=== PATIENT | male | born 1985 | race Caucasian/White ===

== ENCOUNTER 2018-08-07 07:23 | Inpatient (IN) | payer OTHER ==
[~2018-08-07] VITALS: Ht 180.3 cm; Wt 140.6 kg
--- NOTE | 2018-08-07 07:36 | NUR ---
aaox3, BIBA RA 37 From Home Alcohol Abuse "I had a re-lapse been drinking the last 6days. Stopped yesterday for 12H dont feel good". Skin is warm and dry. Placed on the monitor. Sinus Tach 120s in the monitor. elevate HOB. Dr Stover at for eval.
[2018-08-07] MEDS ORDERED: PANTOPRAZOLE 40 MG VIAL ONE (07:41)
[2018-08-07] MEDS ORDERED: ONDANSETRON HCL/PF 4 MG/2 ML VIAL ONE (07:41)
--- NOTE | 2018-08-07 07:48 | NUR ---
Xray in progress at BS.
[2018-08-07 07:54] LABS: BASOPHILS # (AUTO) 0.1 /CMM (0.0-0.2); BASOPHILS % (AUTO) 1.5 % (0.0-2.0); EOSINOPHILS % (AUTO) 0.1 % (0.0-6.0); HEMATOCRIT 49 % (39-51); HEMOGLOBIN 16.9 g/dL (13.5-17.5); LYMPHOCYTES # (AUTO) 1.5 /CMM (0.8-4.8); LYMPHOCYTES % (AUTO) 35.6 % (20.0-44.0); MEAN CORPUSCULAR HGB CONC 34 g/dl (31.0-36.0); MEAN CORPUSCULAR VOLUME 92 fL (80-96); MONOCYTES # (AUTO) 0.4 /CMM (0.1-1.30); MONOCYTES % (AUTO) 9.9 % (2.0-12.0); NEUTROPHILS # (AUTO) 2.3 /CMM (1.8-8.9); NEUTROPHILS % (AUTO) 52.9 % (43.0-81.0); PLATELET COUNT (AUTO) 218 /CMM (150-450); RED BLOOD CELL COUNT(AUTO) 5.35 MIL/uL (4.5-6.0); WHITE BLOOD COUNT (AUTO) 4.3 K/uL (4.3-11.0)
[2018-08-07] MEDS ORDERED: IV NS 0.9% 1,000 ML BAG IV ONE ×2 (08:00→11:30)
[2018-08-07] MEDS ORDERED: ONDANSETRON HCL/PF 4 MG/2 ML VIAL IVP ONE (08:00)
[2018-08-07] MEDS ORDERED: PANTOPRAZOLE 40 MG VIAL IV ONE (08:00)
[2018-08-07 08:04] LABS: CALCIUM, SERUM 8.6 mg/dL (8.5-10.1); CREATININE 1.3 mg/dL (0.6-1.3); POTASSIUM 4.1 mmol/L (3.5-5.1)
[2018-08-07 08:12] LABS: ALBUMIN 4.7 g/dL (3.4-5.0); BILIRUBIN,TOTAL 1.8 mg/dL (0.2-1.0); TOTAL PROTEIN, SERUM 8.6 g/dL (6.4-8.2)
[2018-08-07] MEDS ORDERED: KETOROLAC TROMETHAMINE INJ 30 MG/ML VIAL ONE (09:09)
[2018-08-07] MEDS ORDERED: METOCLOPRAMIDE HCL 10 MG/2 ML VIAL ONE (09:09)
--- NOTE | 2018-08-07 09:14 | NUR ---
ONGOING ULTRASOUND AT BEDSIDE
[2018-08-07] MEDS ORDERED: KETOROLAC TROMETHAMINE INJ 30 MG/ML VIAL IV ONE (09:30)
[2018-08-07] MEDS ORDERED: METOCLOPRAMIDE HCL 10 MG/2 ML VIAL IV ONE (09:30)
[2018-08-07] MEDS ORDERED: IV NS 0.9% 250 ML IV ONE (10:19)
[2018-08-07] MEDS ORDERED: CT SWABBABLE VALVE TRANS SET 1 EA INFUS.SET MC ONE (10:19)
[2018-08-07] MEDS ORDERED: IOHEXOL-300 100 ML VIAL IV ONE (10:19)
[2018-08-07] MEDS ORDERED: LIDOCAINE VISCOUS 2% UD 15 ML UDC ONE (11:17)
[2018-08-07] MEDS ORDERED: MAG HYDROX/AL HYDROX/SIMETH 30 ML UDC ONE (11:17)
[2018-08-07] MEDS ORDERED: LIDOCAINE VISCOUS 2% UD 15 ML UDC MM ONE (11:30)
[2018-08-07] MEDS ORDERED: MAG HYDROX/AL HYDROX/SIMETH 30 ML UDC PO ONE (11:30)
--- NOTE | 2018-08-07 13:10 | NUR ---
DR PRIES AT FOR RE-EVAL.
--- NOTE | 2018-08-07 13:10 | NUR ---
Dorcas mckeon in [facility] - 08/07/18 at [address] PIRES AT FOR FLOYD.
[2018-08-07] MEDS ORDERED: PROP20TA19 PO (13:27)
[2018-08-07] MEDS ORDERED: Z GUARD REMEDY 2 OZ OINT TP PRN (14:30)
[2018-08-07] MEDS ORDERED: ACETAMINOPHEN 325 MG TABLET PO PRN (14:30)
[2018-08-07] MEDS ORDERED: MAG HYDROX/AL HYDROX/SIMETH 30 ML UDC PO PRN (14:30)
[2018-08-07] MEDS ORDERED: MAGNESIUM HYDROXIDE 30 ML UDC PO PRN (14:30)
--- NOTE | 2018-08-07 15:06 | NUR ---
RECEIVED REPORT FROM ED
--- NOTE | 2018-08-07 15:06 | NUR ---
REPORT GIVEN TO REBECCA DANIELSON FOR [facility] MS 101
--- NOTE | 2018-08-07 15:15 | NUR ---
RN MS NOTES PATIENT ARRIVED ON UNIT VIA W/C
[2018-08-07 16:00] VITALS: BP 129/91
--- NOTE | 2018-08-07 16:00 | NUR ---
RN ADMITTING NOTES RECEIVED PATIENT VIA W/C. ABLE TO AMBULATE WITH STANDBY ASSIST. NO SIGNS OR SYMPTOMS OF RESPIRATORY DISTRESS SATURATING 95% ON ROOM AIR. NO C/O ACUTE PAIN 0/10. ABDOMINAL DISCOMFORT NOTED. WELL NOURISHED MALE A/O X3 WITH ETOH LEVEL OF 391. STATES HE WAS SOBER FOR 7 MONTHS THEN WENT ON DRINKING BINGE FOR THE LAST 8 DAYS. STARTED FEELING SICK WITH VOMITING 08/06 CAME INTO ED. IVF NS @ 125 #20 GAUGE IN RAC PATENT. ASKING FOR ICE CHIPS AND JUICE TOLERATED WELL REGULAR DIET ORDERED. ATIVAN WITH ZOFRAN GIVEN @ 2293 PATIENT STATES HE FEELS LIKE HES STARTING TO WITHDRAW ORIENTED TO ROOM AND CONTROL. LIGHTS TURNED DOWN ROOM KEPT COOL AND QUIET. SAFETY AND SEIZURE PRECAUTIONS IN PLACE BED IN LOW POSITION CALL LIGHT WITHIN REACH. WILL CONT TO MONITOR FOR WITHDRAW.
[2018-08-07] MEDS: IV NS 0.9% 1,000 ML IV PRN (16:44)
[2018-08-07] MEDS: ONDANSETRON HCL/PF 4 MG/2 ML VIAL IVP PRN (16:49)
[2018-08-07] MEDS: LORAZEPAM INJ 2 MG/ML VIAL IV PRN (16:49)
--- NOTE | 2018-08-07 19:32 | NUR ---
RN CLOSING NOTES REPORT GIVEN TO MODESTO
[2018-08-07 20:00] VITALS: BP 110/71
--- NOTE | 2018-08-07 20:00 | NUR ---
MS RN NOTES RECEIVED PATIENT AWAKE IN BED, DIAPHORETIC WITH C/O NAUSEA AND FEELING ANXIOUS AND UNEASY. HR 105, REST OF VITALS WNL. INITIALLY, PERIPHERAL LINE IN RIGHT AC LEAKING D/T BENDING ARM. ENCOURAGED TO KEEP ARM STRAIGHT AND SITE REMAINS INTACT AND PATENT. INITIATED SECOND PERIPHERAL LINE IN LEFT HAND #22 GAUGE BACK UP ACCESS LINE. PRN ATIVAN 1MG IVP GIVEN AND EFFECTIVE. PATIENT ASLEEP WITH NO FURTHER DISTRESS NOTED. BED IN LOW LOCK SETTING. ROOM FREE OF CLUTTER AND BELONGINGS KEPT NEAR BEDSIDE. WILL CONTINUE TO MONITOR.
[2018-08-07 21:50] VITALS: BP 110/71
[2018-08-08] MEDS: LORAZEPAM INJ 2 MG/ML VIAL IV PRN ×6 (01:38→22:22)
[2018-08-08] MEDS: ONDANSETRON HCL/PF 4 MG/2 ML VIAL IVP PRN ×3 (01:44→22:22)
[2018-08-08 04:00] VITALS: BP 145/93
[2018-08-08] MEDS: HYDROCODONE/APAP 5/325MG 1 EACH TABLET PO PRN ×3 (04:49→16:22)
[2018-08-08] MEDS: IV NS 0.9% 1,000 ML IV PRN ×3 (04:49→22:21)
[2018-08-08 05:14] VITALS: BP 145/93
--- NOTE | 2018-08-08 06:00 | NUR ---
MS RN NOTES PATIENT ASLEEP IN BED WITH NO DISTRESS NOTED. CALL LIGHT WITHIN REACH. ALL DUE MEDS GIVEN ORDERED WITH NO ASE NOTED. NO FURTHER C/O PAIN OR DISCOMFORT. BED IN LOW LOCK SETTING. ALL BELONGINGS KEPT NEAR BEDSIDE. WILL ENDORSE TO ONCOMING SHIFT.
[2018-08-08 07:04] LABS: BASOPHILS % (AUTO) 0.7 % (0.0-2.0); EOSINOPHILS % (AUTO) 1.1 % (0.0-6.0); HEMATOCRIT 38 % (39-51); HEMOGLOBIN 13.1 g/dL (13.5-17.5); LYMPHOCYTES # (AUTO) 0.9 /CMM (0.8-4.8); LYMPHOCYTES % (AUTO) 23.1 % (20.0-44.0); MEAN CORPUSCULAR HGB CONC 34 g/dl (31.0-36.0); MEAN CORPUSCULAR VOLUME 92 fL (80-96); MONOCYTES # (AUTO) 0.3 /CMM (0.1-1.30); MONOCYTES % (AUTO) 8.5 % (2.0-12.0); NEUTROPHILS # (AUTO) 2.7 /CMM (1.8-8.9); NEUTROPHILS % (AUTO) 66.6 % (43.0-81.0); PLATELET COUNT (AUTO) 111 /CMM (150-450); RED BLOOD CELL COUNT(AUTO) 4.15 MIL/uL (4.5-6.0)
[2018-08-08 07:24] LABS: ALBUMIN 3.8 g/dL (3.4-5.0); BILIRUBIN,DIRECT 0.5 mg/dL (0.0-0.2); BILIRUBIN,TOTAL 1.4 mg/dL (0.2-1.0); CALCIUM, SERUM 8.7 mg/dL (8.5-10.1); MAGNESIUM 2.1 mg/dL (1.8-2.4); PHOSPHORUS 1.9 mg/dL (2.5-4.9); POTASSIUM 3.7 mmol/L (3.5-5.1); TOTAL PROTEIN, SERUM 6.8 g/dL (6.4-8.2)
[2018-08-08 08:00] VITALS: BP 137/77
--- NOTE | 2018-08-08 08:00 | NUR ---
RN INITIAL NOTE PT AOX2-3, DROWSY, CO GENERALIZED PAIN AND SHAKINESS AND BEING ANXIOUS, HAVING VISUAL HALLUCINATIONS. ASKING ATIVAN AND PAIN MEDICINE. ABLE TO AMBULATE TO BATHROOM. IV LINE IN PLACE AND INTACT, IV FLUID RUNNING. CALL LIGHT WITHIN REACH, SAFETY MEASURES IN PLACE. SIDE RAILS PADDED. WILL CONTINUE TO MONITOR.
[2018-08-08 08:27] LABS: THYROID STIMULATING HORMONE 4.19 uIU/mL (0.358-3.74)
[2018-08-08] MEDS: PANTOPRAZOLE 40 MG TABLET.DR PO SCH (08:31)
[2018-08-08] MEDS ORDERED: K PHOS NEUTRAL 250 MG TABLET PO ONE (11:30)
[2018-08-08] MEDS: THIAMINE HCL 100 MG TABLET PO SCH (12:38)
[2018-08-08] MEDS: FOLIC ACID 1 MG TABLET PO SCH (12:38)
[2018-08-08 16:00] VITALS: BP 160/85
--- NOTE | 2018-08-08 19:00 | NUR ---
RN NOTE PT HAD EMESIS X3, GREENISH COLOR. ZOFRAN GIVEN, PT REPORTED RELIEF OF NAUSEA BEFORE DINNER, ATE 50% DINNER. MEDS GIVEN ORDERED, NEEDS MET, PT HAD BEEN SEEN BY PHYSICAL THERAPIST, PT HAD SHOWER. SAFETY MEASURES IN PLACE, CALL LIGHT WITHIN REACH.
--- NOTE | 2018-08-08 19:50 | NUR ---
MS RN NOTES RECEIVED PATIENT AWAKE IN BED, ALERT ORIENTED X4 , IV ACCESS INTACT AND PATENT ON LEFT HAND WITH NS @ 125 ML/HR INFUSING WELL, SAFETY MEASURES IN PLACED, BED IN LOW LOCKED POSITION, ALL NEEDS ATTENDED, KEPT COMFORTABLE, DENIES ANY PAIN OR DISCOMFORT AT THIS TIME, WILL CONTINUE TO MONITOR ACCORDINGLY.
[2018-08-08 20:00] VITALS: BP 149/98
--- NOTE | 2018-08-08 22:22 | NUR ---
RN NOTES ATIVAN AND ZOFRAN GIVEN PER MD ORDER FOR PRN, PATIENT IS NAUSEOUS AT THIS TIME, WILL CONTINUE TO MONITOR.
[2018-08-09] VITALS: BP 149/98
[2018-08-09 04:00] VITALS: BP 154/89
[2018-08-09] MEDS: ONDANSETRON HCL/PF 4 MG/2 ML VIAL IVP PRN ×2 (04:41→15:50)
[2018-08-09] MEDS: LORAZEPAM INJ 2 MG/ML VIAL IV PRN ×7 (04:41→23:23)
--- NOTE | 2018-08-09 04:41 | NUR ---
RN NOTES ATIVAN AND ZOFRAN GIVEN PER MD ORDER FOR PRN, PATIENT VOMITTED X1, VITALS SIGNS WNL, NO SIGNS OF ACUTE RESPIRATORY DISTRESS NOTED, WILL MONITOR.
[2018-08-09] MEDS: IV NS 0.9% 1,000 ML IV PRN ×3 (06:14→23:07)
--- NOTE | 2018-08-09 06:36 | NUR ---
RN NOTES ABLE TO REST AND SLEEP AT INTERVALS, KEPT CLEAN DRY AND COMFORTABLE,, DUE MEDS GIVEN TOLERATING WELL, DENIES PAIN AT THIS TIME, WILL ENDORSE TO AM NURSE FOR CONTINUITY OF CARE
[2018-08-09 07:30] LABS: BASOPHILS % (AUTO) 0.6 % (0.0-2.0); EOSINOPHILS % (AUTO) 4.2 % (0.0-6.0); HEMATOCRIT 38 % (39-51); HEMOGLOBIN 13.4 g/dL (13.5-17.5); LYMPHOCYTES % (AUTO) 20.6 % (20.0-44.0); MEAN CORPUSCULAR HGB CONC 35 g/dl (31.0-36.0); MEAN CORPUSCULAR VOLUME 90 fL (80-96); MONOCYTES # (AUTO) 0.3 /CMM (0.1-1.30); MONOCYTES % (AUTO) 6.7 % (2.0-12.0); NEUTROPHILS # (AUTO) 3.3 /CMM (1.8-8.9); NEUTROPHILS % (AUTO) 67.9 % (43.0-81.0); PLATELET COUNT (AUTO) 94 /CMM (150-450); WHITE BLOOD COUNT (AUTO) 4.8 K/uL (4.3-11.0)
[2018-08-09 07:47] LABS: CALCIUM, SERUM 8.7 mg/dL (8.5-10.1); CREATININE 0.9 mg/dL (0.6-1.3); PHOSPHORUS 3.1 mg/dL (2.5-4.9); POTASSIUM 3.2 mmol/L (3.5-5.1)
[2018-08-09 08:00] VITALS: BP 157/80
[2018-08-09] MEDS: PANTOPRAZOLE 40 MG TABLET.DR PO SCH (08:51)
[2018-08-09] MEDS: FOLIC ACID 1 MG TABLET PO SCH (08:51)
[2018-08-09] MEDS: THIAMINE HCL 100 MG TABLET PO SCH (08:51)
--- NOTE | 2018-08-09 11:38 | NUR ---
Social service consult requested by YUAN Todd for alcohol abuse. Pt is a 33 year old male who was admitted to [facility] for pancreatitis and alcohol withdrawal seizures. Pt. alert and oriented x 4. Pt. appears to be withdrawing. Pt. states he is not feeling too great as of yet. Pt. states he moved out to [facility] two weeks ago and has been binge drinking for the past two weeks. Pt. resides at [address] [place] [address] and lives with two roommates. Pt. is originally from [place] but has lived in [place] and been through a treatment program there. Pt. was sober for 8 months but recently moved here and does not have a support system and began drinking again. Pt's emergency contact is his father Ajay Calix . Pt's father is aware of his hospitalization. 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 SHABBIR encouraged pt. to attend a treatment program again, however, pt. stated," that it is not going to do much for him." Pt. declined all alcohol treatment referrals that were offered to him. SHABBIR informed pt. she is available, if he decides to change his mind and wants to go into treatment.
[2018-08-09] MEDS: POTASSIUM CHLORIDE 20 MEQ TAB.PRT.SR PO SCH ×2 (11:50→12:54)
[2018-08-09] MEDS: HYDROCODONE/APAP 5/325MG 1 EACH TABLET PO PRN (11:58)
[2018-08-09 13:08] LABS: LYMPHOCYTES % (MANUAL) 27 % (16-48); MONOCYTES % (MANUAL) 2 % (0-11.0); NEUTROPHILS % (MANUAL) 71 (42-76)
[2018-08-09 16:00] VITALS: BP 163/108
--- NOTE | 2018-08-09 19:22 | NUR ---
MS RN NOTE PATIENT REPORT GIVEN BEDSIDE. PATIENT RECEIVED IN BED A.O X 4. PATIENT PATIENT HAS NO C/O OF ACUTE DISTRESS NO N/V/D/ SOB/ / CHEST PAIN. PATIENT L HAND 22 GAUGE PATENT INTACT RUNNING 125 ML/NS. NO S.S OF INFILTRATION/ INFECTION. SEIZURE PRECAUTIONS/ SAFETY PRECAUTIONS IN PLACE. BED IN LOWEST LOCKED POSITION SIDE RAILS UP X 2. RN WILL CONTINUE TO MONITOR.
[2018-08-09 20:00] VITALS: BP 144/89
--- NOTE | 2018-08-09 22:22 | NUR ---
RN NOTES RECEIVED PATIENT FROM REBECCA WORKMAN FOR CONTINUITY OF CARE, PATIENT IN BED SLEEPING AT THIS TIME, BREATHING EVEN AN D UNLABORED, NO SOB/ACUTE DISTRESS NOTED AT THIS TIME, NO FACIAL GRIMACING AT THIS TIME, NO N/V/D/ IV ACCESS IN L HAND 22 G PATENT AND INTACT, INFUSING N S 0.9% AT 125 ML/HR WELL AND PATIENT TOLERATED WELL, NO S/S OF INFILTRATION/ INFECTION NOTED, SEIZURE PRECAUTIONS/ SAFETY PRECAUTIONS IN PLACE AT ALL TIMES, BED LOCKED AND LOWEST POSITION, SIDE RAILS UP X 2, WILL CONTINUE TO MONITOR CLOSELY.
[2018-08-10] VITALS (8 sets, daily range): BP systolic 130–162; BP diastolic 86–103
[2018-08-10] MEDS: LORAZEPAM INJ 2 MG/ML VIAL IV PRN ×3 (01:55→09:19)
[2018-08-10] MEDS: ONDANSETRON HCL/PF 4 MG/2 ML VIAL IVP PRN ×2 (02:03→09:47)
[2018-08-10] MEDS: HYDROCODONE/APAP 5/325MG 1 EACH TABLET PO PRN ×2 (04:34→23:19)
--- NOTE | 2018-08-10 06:36 | NUR ---
RN NOTES PATIENT IN BED AWAKE AT THIS TIME, THIS TIME, BREATHING EVEN AN D UNLABORED, NO SOB/ACUTE DISTRESS NOTED AT THIS TIME, MEDICATION FOR NAUSEA ADMINISTERED INSTRUMENT MAKER, RIGHT NOW DENIES N/V/D IV ACCESS IN L HAND 22 G PATENT AND INTACT, CONTINUE WITH HYDRATION IVF INFUSING WELL AND PATIENT TOLERATED WELL, NO S/S OF INFILTRATION/ INFECTION NOTED, SEIZURE PRECAUTIONS/ SAFETY PRECAUTIONS IN PLACE AT ALL TIMES, ATIVAN ADMINISTERED SEVERAL TIMES DURING THE NIGHT, AND NORCO IN THE MORNING FOR PAIN, PER PATIENT REQUEST, NO SEIZURE ACTIVITY NOTED, BED LOCKED AND LOWEST POSITION, SIDE RAILS UP X 2, WILL ENDORSE CONTINUITY OF CARE TO ONCOMING NURSE.
[2018-08-10 06:37] LABS: BASOPHILS % (AUTO) 0.4 % (0.0-2.0); EOSINOPHILS % (AUTO) 0.1 % (0.0-6.0); HEMATOCRIT 41 % (39-51); HEMOGLOBIN 14.1 g/dL (13.5-17.5); LYMPHOCYTES # (AUTO) 0.3 /CMM (0.8-4.8); MEAN CORPUSCULAR HGB CONC 35 g/dl (31.0-36.0); MEAN CORPUSCULAR VOLUME 91 fL (80-96); MONOCYTES # (AUTO) 0.3 /CMM (0.1-1.30); MONOCYTES % (AUTO) 5.4 % (2.0-12.0); NEUTROPHILS % (AUTO) 88.1 % (43.0-81.0); PLATELET COUNT (AUTO) 80 /CMM (150-450); RED BLOOD CELL COUNT(AUTO) 4.48 MIL/uL (4.5-6.0); WHITE BLOOD COUNT (AUTO) 5.6 K/uL (4.3-11.0)
[2018-08-10 06:46] LABS: CALCIUM, SERUM 8.7 mg/dL (8.5-10.1); MAGNESIUM 1.6 mg/dL (1.8-2.4); PHOSPHORUS 2.6 mg/dL (2.5-4.9); POTASSIUM 3.4 mmol/L (3.5-5.1)
[2018-08-10 08:41] LABS: LYMPHOCYTES % (MANUAL) 5 % (16-48); MONOCYTES % (MANUAL) 5 % (0-11.0); NEUTROPHILS % (MANUAL) 90 (42-76)
--- NOTE | 2018-08-10 09:20 | NUR ---
RN NOTE: CLYDE SANCHEZ, YUAN WAS MADE AWARE THAT THE PATIENT HAD NO EPISODE OF VOMITING OVERNIGHT. PER DELIVERY CLERK, OK TO START WITH CLEAR LIQUID DIET AND INFORM HER IF PATIENT WAS ABLE TO TOLERATE IT FOR ADVANCEMENT OF DIET FOR LUNCH. ORDER, NOTED AND CARRIED OUT. PATIENT AND PRIMARY NURSE MARIANELA WAS INFORMED.
[2018-08-10] MEDS ORDERED: POTASSIUM CHLORIDE 20 MEQ POWDER PACKET PO SCH (11:30)
--- NOTE | 2018-08-10 11:30 | NUR ---
RN NOTE: INFORMED CLYDE SANCHEZ NP REGARDING THE PATIENT'S BREAKFAST MEAL AND PATIENT WAS ABLE TO TOLERATE EATING 100% OF THE MEAL. PER METAL FLOW COORDINATOR, OK TO ADVANCED DIET, ORDER NOTED AND CARRIED OUT. PATIENT AND PRIMARY NURSE MARIANELA WAS INFORMED.
--- NOTE | 2018-08-10 11:30 | NUR ---
rn note YUAN SANCHEZ NOTIFIED ABOUT REDNESS IN THE RIGHT ANTECUBITAL AREA WHERE THE OLD IV WAS IN PLACE. PICTURE TAKEN AND WOUND CONSULT ORDERED. REDNESS AND COVERED WITH GAUZE AND TAPE. PER YUAN SANCHEZ SHE WILL COME AND SEE PT LATER TODAY.
[2018-08-10] MEDS: PANTOPRAZOLE 40 MG TABLET.DR PO SCH (11:40)
[2018-08-10] MEDS: THIAMINE HCL 100 MG TABLET PO SCH (11:41)
[2018-08-10] MEDS: Magnesium 1GM/D5W 100ML PREMIX 100 ML IV SCH ×2 (11:41→14:32)
[2018-08-10] MEDS: FOLIC ACID 1 MG TABLET PO SCH (11:41)
[2018-08-10] MEDS ORDERED: ACETAMINOPHEN 325 MG TABLET PO PRN (14:30)
[2018-08-10] MEDS: IV NS 0.9% 1,000 ML IV PRN (14:46)
[2018-08-10] MEDS ORDERED: CEFTRIAXONE 1 G in IV D5W 50 ML IV SCH (15:00)
[2018-08-10] MEDS: AZITHROMYCIN 250 MG TABLET PO SCH (17:25)
[2018-08-10 17:31] LABS: APPEARANCE,URINE CLEAR (CLEAR); BILIRUBIN,URINE NEGATIVE (NEGATIVE); BLOOD, URINE TRACE-INTA Ery/uL (NEGATIVE); COLOR,URINE YELLOW (YELLOW); KETONES,URINE NEGATIVE (NEGATIVE); LEUKOCYTE ESTERASE ,URINE NEGATIVE (NEGATIVE); NITRITE, URINE NEGATIVE (NEGATIVE); PROTEIN,URINE NEGATIVE (NEGATIVE); UGLUCOSE NEGATIVE (NEGATIVE)
[2018-08-10 17:39] LABS: BACTERIA,URINE B /HPF (None Seen); RBC,URINE 0-2 /HPF (0-2); SQUAMOUS EPITHELIAL CELL,UR Few /HPF (None Seen); WBC,URINE 0-2 /HPF (0-3)
--- NOTE | 2018-08-10 19:00 | NUR ---
RN NOTE: INFORMED CLYDE SANCHEZ NP REGARDING THE (R) UPPER ARM VENOUS DOPPLER RESULT. PATIENT WAS + FOR DVT. YUAN TANG GAVE AN ORDER TO START HEPARIN DRIP PER NON-ACS PROTOCOL AND TRANSFER PATIENT TO TELEMETRY. ORDERED STAT PT/INR, APTT FOR BASELINE. CALLED AND INFORMED PHARMACIST ABOUT THE ORDER.
[2018-08-10] MEDS ORDERED: HEPARIN SODIUM, PORCINE 5000 UNITS/1 ML VIAL IV ONE (20:30)
--- NOTE | 2018-08-10 20:40 | NUR ---
PLANT BIOLOGY PROFESSOR: CLARIFIED WT YUAN KENDALL IF STILL WANTS TO GIVE HEPARIN 8,000 UNITS IV BOLUS PLT=80. NO ACTIVE BLEEDING NOTED. TECHNOLOGY DIRECTOR SAID IT'S OK TO GIVE BOLUS AND FOLLOW HEPARIN FOR NON-ACS PROTOCOL.
[2018-08-10] MEDS: CEFEPIME 1 GM in IV D5W 50 ML IV SCH (20:47)
[2018-08-10] MEDS: HEPARIN INFUSION/D5W 500 ML IV PRN (21:20)
--- NOTE | 2018-08-10 21:30 | NUR ---
VEGETABLE TRIMMER: STARTED HEPARIN DRIP AT 1800U/HR AND WILL REDRAW PTT AT 0330. WILL CONTINUE TO MONITOR.
[2018-08-11] VITALS (9 sets, daily range): BP systolic 139–163; BP diastolic 90–106
[2018-08-11] MEDS: IV NS 0.9% 1,000 ML IV PRN ×2 (02:37→12:24)
[2018-08-11] MEDS: HYDROCODONE/APAP 5/325MG 1 EACH TABLET PO PRN ×5 (03:40→23:26)
[2018-08-11 04:17] LABS: BASOPHILS % (AUTO) 0.6 % (0.0-2.0); EOSINOPHILS % (AUTO) 1.3 % (0.0-6.0); HEMATOCRIT 40 % (39-51); HEMOGLOBIN 14.3 g/dL (13.5-17.5); LYMPHOCYTES # (AUTO) 0.9 /CMM (0.8-4.8); LYMPHOCYTES % (AUTO) 17.8 % (20.0-44.0); MEAN CORPUSCULAR HGB CONC 35 g/dl (31.0-36.0); MEAN CORPUSCULAR VOLUME 92 fL (80-96); MONOCYTES # (AUTO) 0.5 /CMM (0.1-1.30); MONOCYTES % (AUTO) 10.9 % (2.0-12.0); NEUTROPHILS # (AUTO) 3.4 /CMM (1.8-8.9); NEUTROPHILS % (AUTO) 69.4 % (43.0-81.0); PLATELET COUNT (AUTO) 76 /CMM (150-450); WHITE BLOOD COUNT (AUTO) 4.9 K/uL (4.3-11.0)
[2018-08-11 04:39] LABS: ALBUMIN 3.6 g/dL (3.4-5.0); BILIRUBIN,TOTAL 0.6 mg/dL (0.2-1.0); CALCIUM, SERUM 8.1 mg/dL (8.5-10.1); CREATININE 1.1 mg/dL (0.6-1.3); MAGNESIUM 2.1 mg/dL (1.8-2.4); PHOSPHORUS 3.3 mg/dL (2.5-4.9); POTASSIUM 3.1 mmol/L (3.5-5.1); TOTAL PROTEIN, SERUM 7.1 g/dL (6.4-8.2)
--- NOTE | 2018-08-11 05:55 | NUR ---
MEDIA ARTS PROFESSOR: RELAYED TO YUAN KENDALL PTT, PLT RESULTS AND SAID TO FOLLOW HEPARIN DRIP PROTOCOL. ALSO RELAYED K RESULT=3.1 WT ORDER TO GIVE KCL 40MEQ PO X1. NOTED AND CARRIED OUT. NO ACTIVE BLEEDING. NO SIGNIFICANT BABITA DURING SHIFT. PAIN MEDS GIVEN REQUESTED WT GOOD EFFECT. VS WITHIN PT'S BASELINE. SAFETY PRECAUTION NOTED AT ALL TIMES.
[2018-08-11] MEDS ORDERED: POTASSIUM CHLORIDE 20 MEQ TAB.PRT.SR PO ONE (06:00)
[2018-08-11] MEDS ORDERED: HEPARIN SODIUM, PORCINE 5000 UNITS/1 ML VIAL IV ONE ×2 (06:00→14:30)
--- NOTE | 2018-08-11 07:30 | NUR ---
DIPLOMATIC OFFICER AM NOTES PATIENT IN BED AWAKE, ON ROOM AIR, NOT IN ANY DISTRESS, RESPIRATION UNLABORED. SR HR 99 ON MONITOR. DENIES ANY CHEST PAIN OR DISCOMFORT, LEFT HAND WITH NS AT 125 ML/HR ONGOING, HEPARIN DRIP 2000 UNITS/HR TO LEFT FA, BOTH SITES CLEAR. AMBULATORY ON CARDIAC DIET. NO SKIN ISSUES. CALL LIGHT WITHIN REACH, SAFETY MEASURES IN PLACE. WILL CONT TO MONITOR
[2018-08-11] MEDS: FOLIC ACID 1 MG TABLET PO SCH (09:03)
[2018-08-11] MEDS: AZITHROMYCIN 250 MG TABLET PO SCH (09:03)
[2018-08-11] MEDS: THIAMINE HCL 100 MG TABLET PO SCH (09:05)
[2018-08-11] MEDS: CEFEPIME 1 GM in IV D5W 50 ML IV SCH ×2 (09:19→19:20)
--- NOTE | 2018-08-11 09:30 | NUR ---
TELEPHONE DIRECTORY DISTRIBUTOR DRIVER NOTES DUE MEDS GIVEN
[2018-08-11] MEDS: PANTOPRAZOLE 40 MG TABLET.DR PO SCH (10:50)
--- NOTE | 2018-08-11 11:32 | NUR ---
COSTUME MISTRESS NOTES SPOKE WITH CLYDE SANCHEZ NP RE PT NEEDS SURGEON EVALUATION - DR. CAR HOUSING MANAGER, PER LACHO DORAN WOUND CARE NURSE. ACKNOWLEDGED BY CLYDE SANCHEZ NP. RELAYED TO LACHO.
--- NOTE | 2018-08-11 12:08 | NUR ---
SENIOR DATA MINING ANALYST SENIOR DATA MINING ANALYST RECOMMENDS SURGICAL EVALUATION OF THE RIGHT ANTECUBITAL SPACE REDNESS, INDURATION, SMALL DRNG AND WARMTH, PAINFUL TO TOUCH. PRIMARY RN NOTIFIED AND PRIMARY NURSE SPOKE TO YUAN SANCHEZ TO CALL GENERAL SURGEON COMMISSIONED POLICE OFFICER FOR EVALUATION OF THE AREA.
[2018-08-11] MEDS: HEPARIN INFUSION/D5W 500 ML IV PRN ×2 (12:19→23:58)
--- NOTE | 2018-08-11 12:44 | NUR ---
WOUND CARE CONSULT:PATIENT PRESENTS WITH RT RONALD BROWN LESION AND RT AC REDNESS WITH SWELLING ,POA, PLAN OF CARE DISCUSSED WITH NURSING STAFF, AND RT AC TREATMENT DIFFERED TO SURGEON, DAVID SCORE 22,WILL SEE PRN Addendum: 08/11/18 at 1248 by LUBA AN RN Amended: Links added.
--- NOTE | 2018-08-11 14:30 | NUR ---
BPM SOLUTION ARCHITECT NOTES APTT = 31.1. HEPARIN DRIP ADJUSTED. PER CLYDE SANCHEZ GLAZE SUPERVISOR, CONTINUE WITH CURRENT HEPARIN PROTOCOL. 8000 UNITS HEPARIN GIVEN BOLUS. DRIP INCREASED FROM 2,000 TO 2,400UNITS/HR.
[2018-08-11] MEDS ORDERED: FEE PK DOSING 1 MIN EA MC ONE (15:33)
[2018-08-11] MEDS: ONDANSETRON HCL/PF 4 MG/2 ML VIAL IVP PRN (16:01)
--- NOTE | 2018-08-11 19:20 | NUR ---
MACHINE GRAINER NOTE PATIENT IS AOX3, ALERT, ON ROOM AIR, DENIES ANY RESPIRATORY OR CARDIAC DISTRESS, L HAND #22G PATENT FLUSHING WELL, RUNNING HEPARIN AT 2400 UNIT/HR, NS AT 125 ML/HR, SKIN KEPT CLEAN AND DRY, SAFETY MAINTAINED AT ALL TIMES, BED IN LOW LOCKED POSITION, CALL LIGHT WITHIN REACH, WILL CONTINUE TO MONITOR FOR ANY CHANGES IN CONDITION.
--- NOTE | 2018-08-11 19:30 | NUR ---
MICA PLATE LAYER HAND NOTES ALL NEEDS MET AT THIS TIME. STABLE. NO OTHER SIGNIFICANT CHANGE IN CONDITION. WAITING FOR DR. CRA AND DR. JOHNSON EVALUATION OF PATIENT. SAFETY MEASURES IN PLACE. WILL ENODRSE TO NEXT SHIFT FOR BABITA.
[2018-08-11] MEDS: VANCOMYCIN 1.25 GM in IV D5W 500 ML IV SCH ×2 (19:32→23:27)
--- NOTE | 2018-08-11 20:30 | NUR ---
GOGO/ORDERING MACHINE OPERATOR RECEIVED REPORT FROM NIGHT NURSE. SEE FLOWSHEET FOR ASSESSMENT, ALONG WITH ANY AND ALL SKIN ISSUES WHICH ARE ADDRESSED ALONG WITH THE EACH OF THE INTERVENTIONS TO THESE. PT IS CURRENTLY ALERTX4 AND ON ROOM AIR, TOLERATING THIS WELL. PT IS ON IVF WHICH ARE ADDRESSED ON THE IV SPREAD SHEET.PT TURNS SELF AND REPOSITION SELF FOR COMFORT AND CARE. WILL CONTINUE TO MONITOR THIS PT CLOSELY.
--- NOTE | 2018-08-11 21:00 | NUR ---
GOGO/STREET LIGHT REPAIRER HELPER PT'S PTT WAS DRAWN WHICH WAS 48.7, THERE IS NO CHANGE IN THE HEPARIN DRIP. WILL CONTINUE TO MONITOR THIS PT. ALSO CHARGE NURSE AWARE OF RESULTS AND IV HEPARIN.
--- NOTE | 2018-08-11 22:00 | NUR ---
GOGO/NUCLEAR WEAPONS SPECIALIST PLT [address] JOHNSON IS GOOD TO KEEP HEPARIN GOING AT CURRENT RATE. WILL CONTINUE TO MONITOR THIS PT.
--- NOTE | 2018-08-11 23:20 | NUR ---
GOGO/GLASS MELT OPERATOR CULTURED RIGHT FA, DUE TO RED AND PUSS COMING OUT.
[2018-08-12] VITALS: BP 136/94
--- NOTE | 2018-08-12 00:10 | NUR ---
GOGO/QUANTOMETER OPERATOR NORCO 1 TAB GIVEN FOR PAIN WHICH IS 8/10 TO ARM. WILL CONTINUE TO MONITOR THIS PT.
[2018-08-12] MEDS: VANCOMYCIN 1.25 GM in IV D5W 500 ML IV SCH ×3 (02:33→22:06)
[2018-08-12] MEDS: IV NS 0.9% 1,000 ML IV PRN ×2 (02:33→21:11)
[2018-08-12] MEDS: PANTOPRAZOLE 40 MG TABLET.DR PO SCH (02:34)
[2018-08-12 04:00] VITALS: BP 142/95
[2018-08-12] MEDS: HYDROCODONE/APAP 5/325MG 1 EACH TABLET PO PRN ×2 (04:20→08:34)
--- NOTE | 2018-08-12 07:25 | NUR ---
PIPING MANAGER OPENING NOTES RECEIVED REPORT FROM PROJECT STRUCTURAL ENGINEER BAM HUERTA. PT IS RESTING IN BED. PT IS A&OX4. PT HAS L HAND 22 GAUGE RUNNING HEPARIN AND NS. PT DENIES ANY SOB AT PRESENT TIME BUT IS COMPLAINING OF MILD PAIN. STATES THAT HE HAS BEEN TREATING THE PAIN WITH NORCO. NO SIGNIFICANT CHANGES DURING PROJECT STRUCTURAL ENGINEER. WILL CONTINUE TO MONITOR. BED IS LOCKED AND IN LOWEST POSITION WITH CALL LIGHT WITHIN REACH.
[2018-08-12] MEDS: ONDANSETRON HCL/PF 4 MG/2 ML VIAL IVP PRN (07:57)
[2018-08-12 07:58] LABS: BASOPHILS % (AUTO) 0.6 % (0.0-2.0); EOSINOPHILS % (AUTO) 4.5 % (0.0-6.0); HEMATOCRIT 38 % (39-51); HEMOGLOBIN 13.2 g/dL (13.5-17.5); LYMPHOCYTES # (AUTO) 1.6 /CMM (0.8-4.8); LYMPHOCYTES % (AUTO) 27.7 % (20.0-44.0); MEAN CORPUSCULAR HGB CONC 35 g/dl (31.0-36.0); MEAN CORPUSCULAR VOLUME 91 fL (80-96); MONOCYTES # (AUTO) 1.1 /CMM (0.1-1.30); MONOCYTES % (AUTO) 18.3 % (2.0-12.0); NEUTROPHILS # (AUTO) 2.9 /CMM (1.8-8.9); NEUTROPHILS % (AUTO) 48.9 % (43.0-81.0); PLATELET COUNT (AUTO) 91 /CMM (150-450); RED BLOOD CELL COUNT(AUTO) 4.18 MIL/uL (4.5-6.0); WHITE BLOOD COUNT (AUTO) 5.9 K/uL (4.3-11.0)
[2018-08-12 08:00] VITALS: BP 135/94
[2018-08-12 08:07] LABS: CALCIUM, SERUM 8.7 mg/dL (8.5-10.1); CREATININE 0.9 mg/dL (0.6-1.3); MAGNESIUM 2.2 mg/dL (1.8-2.4); PHOSPHORUS 4.2 mg/dL (2.5-4.9); POTASSIUM 3.6 mmol/L (3.5-5.1)
[2018-08-12] MEDS: CEFEPIME 1 GM in IV D5W 50 ML IV SCH ×2 (08:28→21:03)
[2018-08-12] MEDS: FOLIC ACID 1 MG TABLET PO SCH (08:28)
[2018-08-12] MEDS: THIAMINE HCL 100 MG TABLET PO SCH (08:28)
[2018-08-12 09:04] LABS: EOSINOPHILS % (MANUAL) 7 % (0-4); LYMPHOCYTES % (MANUAL) 25 % (16-48); MONOCYTES % (MANUAL) 11 % (0-11.0); NEUTROPHILS % (MANUAL) 57 (42-76)
[2018-08-12] MEDS ORDERED: BISACODYL SUPP (10 MG) 10 MG/SUPP.RECT SUPP.RECT RC PRN (11:30)
[2018-08-12] MEDS ORDERED: NA PHOS,M-B/NA PHOS,DI-BA 1 EA ENEMA RC PRN (11:30)
[2018-08-12] MEDS: LORAZEPAM INJ 2 MG/ML VIAL IV PRN ×2 (11:57→21:11)
[2018-08-12] MEDS: RIVAROXABAN 15 MG TABLET PO SCH ×2 (11:57→17:08)
[2018-08-12 12:00] VITALS: BP 142/95
[2018-08-12 16:00] VITALS: BP_SYST 110; BP_SYST 125; BP_SYST 139; BP_DIAS 50; BP_DIAS 73; BP_DIAS 88
[2018-08-12] MEDS ORDERED: APIXABAN 5 MG TABLET PO SCH (17:00)
[2018-08-12] MEDS: LACTOBACILLUS RHAMNOSUS GG 1 EACH CAP.SPRINK PO SCH (17:07)
[2018-08-12] MEDS ORDERED: GADODIAMIDE 5 MMOL/10 ML VIAL IJ ONE (17:11)
--- NOTE | 2018-08-12 18:36 | NUR ---
RN MS CLOSING NOTES REPORT WILL BE GIVEN TO VENEER STOCK GRADER NURSE. PT IS RESTING IN BED. PT IS A&OX4. PT HAS L HAND 22 GAUGE RUNNING NS @ 125 MLS/HR. PT DENIES ANY SOB AND DENIES ANY PAIN AT PRESENT TIME. NO SIGNIFICANT CHANGES DURING DAY SHIFT. BED IS LOCKED AND IN LOWEST POSITION WITH CALL LIGHT WITHIN REACH. WILL ENDORSE CONTINUITY OF CARE TO VENEER STOCK GRADER RN.
[2018-08-12 20:00] VITALS: BP 149/79
--- NOTE | 2018-08-12 20:15 | NUR ---
RN OPENING NOTES RECEIVED REPORT FROM FARZAD FERNANDEZ. PATIENT A/A/O X3, ABLE TO MAKE NEEDS KNOWN. BREATHING EVEN & UNLABORED, TOLERATING ROOM AIR. DENIES ANY SOB OR DIFFICULTY BREATHING. RADIAL PULSES PRESENT. LEFT HAND IV #22 INTACT & PATENT W/ DRESSING CDI & IVF NS INFUSING WELL @ 125 ML/HR. HEAT PACK APPLIED TO RIGHT FOREARM, NO SWELLING NOTED. ABLE TO AMBULATE INDEPENDENTLY. DENIES ANY PAIN OR DISCOMFORT @ THIS TIME. SAFETY MEASURES IN PLACE W/ SIDE RAILS UP & CALL LIGHT WITHIN REACH. INSTRUCTED TO CALL FOR ASSISTANCE. WILL CONTINUE TO MONITOR.
[2018-08-13] MEDS: HYDROCODONE/APAP 5/325MG 1 EACH TABLET PO PRN ×3 (02:14→12:24)
[2018-08-13 03:58] LABS: BASOPHILS # (AUTO) 0.1 /CMM (0.0-0.2); HEMATOCRIT 37 % (39-51); HEMOGLOBIN 12.9 g/dL (13.5-17.5); LYMPHOCYTES # (AUTO) 1.4 /CMM (0.8-4.8); LYMPHOCYTES % (AUTO) 25.3 % (20.0-44.0); MEAN CORPUSCULAR HGB CONC 35 g/dl (31.0-36.0); MEAN CORPUSCULAR VOLUME 91 fL (80-96); MONOCYTES # (AUTO) 1.2 /CMM (0.1-1.30); NEUTROPHILS # (AUTO) 2.6 /CMM (1.8-8.9); NEUTROPHILS % (AUTO) 46.7 % (43.0-81.0); PLATELET COUNT (AUTO) 121 /CMM (150-450); RED BLOOD CELL COUNT(AUTO) 4.08 MIL/uL (4.5-6.0); WHITE BLOOD COUNT (AUTO) 5.6 K/uL (4.3-11.0)
[2018-08-13 04:00] VITALS: BP 140/60
[2018-08-13 04:05] LABS: CALCIUM, SERUM 8.8 mg/dL (8.5-10.1); CREATININE 0.9 mg/dL (0.6-1.3)
[2018-08-13] MEDS: VANCOMYCIN 1.25 GM in IV D5W 500 ML IV SCH ×2 (04:49→12:39)
[2018-08-13] MEDS: LORAZEPAM INJ 2 MG/ML VIAL IV PRN ×2 (05:39→12:40)
[2018-08-13] MEDS: PANTOPRAZOLE 40 MG TABLET.DR PO SCH (07:54)
[2018-08-13] MEDS: CEFEPIME 1 GM in IV D5W 50 ML IV SCH (07:55)
[2018-08-13 08:00] VITALS: BP 140/94
[2018-08-13] MEDS: LACTOBACILLUS RHAMNOSUS GG 1 EACH CAP.SPRINK PO SCH (09:06)
[2018-08-13] MEDS: THIAMINE HCL 100 MG TABLET PO SCH (09:06)
[2018-08-13] MEDS: FOLIC ACID 1 MG TABLET PO SCH (09:07)
[2018-08-13] MEDS: RIVAROXABAN 15 MG TABLET PO SCH (09:09)
[2018-08-13] MEDS: IV NS 0.9% 1,000 ML IV PRN (12:40)
[2018-08-13] MEDS ORDERED: Rivaroxaban PO (13:25)
[2018-08-13] MEDS ORDERED: SULF1TAB48 PO (13:25)
--- NOTE | 2018-08-13 15:51 | NUR ---
DISCHARGE: PT DISCHARGED AT 1541 PIV REMOVED FROM LEFT ARM PT GIVEN DISCHARGE KIT INCLUDING ALL LABS, WORK REPORTS AND ACI PT WALKED TO LOBBY WITH STEADY BGAIT AND ENTERED LYFT TRANSPORTATION SERVICE TO HOME PT SEEN AND EVALUATED BY JEANETTE LUO.
== END 2018-08-13 15:40 | disposition home or self-care (01) | DRG 720 ==
LOC: ER 07:31 → TELE 14:07 → TELE1 14:30 → MEDSG1 15:31 → TELE1 08-10 19:10 → MEDSG1 08-12 14:00
PROVIDERS: ADMIT Nurse Practitioner Acute Care; ATTEND Nurse Practitioner Acute Care
DX: A41.9 Sepsis, unspecified organism (principal); N17.0 Acute kidney failure with tubular necrosis; D61.818 Other pancytopenia; K85.20 Alcohol induced acute pancreatitis without necrosis or infection; G92 Toxic encephalopathy; I82.621 Acute embolism and thrombosis of deep veins of right upper extremity; J18.9 Pneumonia, unspecified organism; K70.10 Alcoholic hepatitis without ascites; K76.0 Fatty (change of) liver, not elsewhere classified; F10.229 Alcohol dependence with intoxication, unspecified; Y90.8 Blood alcohol level of 240 mg/100 ml or more; F17.210 Nicotine dependence, cigarettes, uncomplicated; R74.0 Nonspecific elevation of levels of transaminase and lactic acid dehydrogenase [LDH]; E87.6 Hypokalemia; E87.1 Hypo-osmolality and hyponatremia; E80.6 Other disorders of bilirubin metabolism; F10.239 Alcohol dependence with withdrawal, unspecified; J98.11 Atelectasis; E66.9 Obesity, unspecified; Z68.41 Body mass index [BMI] 40.0-44.9, adult; F12.90 Cannabis use, unspecified, uncomplicated
CPT/HCPCS: 36415; 71045-TC; 73223-TC; 76705-TC; 80048-TC; 80053-TC; 80061-TC; 80074; 80076-TC; 80202-TC; 80305; 81000-TC; 82728-TC; 83540-TC; 83605-TC; 83690-TC; 83735-TC; 84100-TC; 84439-TC; 84443-TC; 84484-TC; 85025-TC; 85610-TC; 85730-TC; 87040-TC; 87070-TC; 87081-TC; 87086-TC; 87400; 87806; 93971-TC; A4216; A9579; C9113; G0378; G0480; J0692; J0696; J1644; J1885; J2060; J2405; J2765; J3370; J3475; J7030; J7050; J7060; Q9967